=== PATIENT | male | born 1985 | race Caucasian/White ===

== ENCOUNTER 2023-07-21 21:01 | Outpatient (CLI) | payer OTHER, SELFPAY ==
--- NOTE | 2023-08-16 08:42 | W.PM.SLEEP ---
Sleep Study Details Details Interpreting Provider: Sachin Date of Sleep Study: 07/21/23 Sleep Study Details: STUDY TYPE:? Hospital-based with CPAP titration ? BMI:? 32.4 ORDERING PROVIDER:? Pierre Stephenson INDICATION:? Concerns about sleep apnea ? SLEEP SUMMARY:? 311 minutes total sleep time RESPIRATORY SUMMARY:? Mean oxygen awake 91 asleep 90, minimum 80 22.9 minutes oxygen between 80 and 88% AHI 45.5, supine 60.4, nonsupine 22. There is no supine REM sleep seen. CPAP titration was performed to a pressure of 8 and this included 39-1/2 minutes of REM stage sleep in the nonsupine position PERIODIC LIMB MOVEMENTS OF SLEEP:? None noted CARDIAC:? Awake 60, asleep 55. No arrhythmias noted IMPRESSION:? Hypo oxygenation both awake and asleep Severe obstructive sleep apnea with successful CPAP titration in the nonsupine position RECOMMENDATION: Initiate AutoSet CPAP pressure 4-18. Further evaluation of patient's oxygenation is possibly indicated.
== END 2023-07-21 21:02 | disposition home or self-care (01) ==
LOC: SLEEP 21:02
PROVIDERS: PCP Family Medicine; Visit Provider Otolaryngology
DX: G47.33 Obstructive sleep apnea (adult) (pediatric) (principal)
CPT/HCPCS: 95811

== ENCOUNTER 2023-09-05 16:11 | Outpatient (CLI) | payer OTHER, SELFPAY | END 2023-09-05 16:12 | disposition home or self-care (01) | PROVIDERS: PCP Family Medicine; Visit Provider Family Medicine | DX: E78.2 Mixed hyperlipidemia (principal); Z13.228 Encounter for screening for other metabolic disorders | CPT/HCPCS: 80048; 80061; 84460 ==

== ENCOUNTER 2024-11-20 13:20 | Outpatient (CLI) | payer BC, SELFPAY | END 2024-11-20 13:21 | disposition home or self-care (01) | PROVIDERS: PCP Family Medicine; Visit Provider Family Medicine | DX: R61 Generalized hyperhidrosis (principal); E78.2 Mixed hyperlipidemia | CPT/HCPCS: 80048; 80061; 84443; 84460; 85025 ==